=== PATIENT | male | born 1935 | race Caucasian/White ===

== ENCOUNTER 2019-11-21 06:19 | Inpatient (IN) ==
[2019-11-21] MEDS ORDERED: *HR* Metoprolol 5 MG/5 ML VIAL IVP PRN (07:17)
[2019-11-21] MEDS ORDERED: *HR* FentaNYL (PF) 100 MCG/2 ML VIAL IVP PRN (07:17)
[2019-11-21] MEDS ORDERED: Acetaminophen IV 1,000 MG/100 ML INFUS..BTL IVPB ONE (07:17)
[2019-11-21] MEDS ORDERED: *HR* OxyCODONE Immed Rel 5 MG TABLET PO PRN (07:17)
[2019-11-21] MEDS ORDERED: Ondansetron 4 MG/2 ML VIAL IVP ONE ×2 (07:17→13:07)
[2019-11-21] MEDS ORDERED: *HR* Promethazine 25 MG/ML VIAL IVP PRN (07:17)
[2019-11-21] MEDS ORDERED: Albuterol 2.5 MG/3 ML NEBULIZER IH PRN (07:17)
[2019-11-21] MEDS: 0.9 % Sodium Chloride 1,000 ML IVC SCH ×2 (07:18→12:00)
[2019-11-21] MEDS ORDERED: 0.9 % Sodium Chloride 1,000 ML ONE ×2 (07:32→08:56)
[2019-11-21] MEDS ORDERED: ISOVUE-370 200 ML INFUS..BTL ONE (07:32)
[2019-11-21] MEDS ORDERED: Heparin 1,000 UNITS/500 mL 1,500 ML ONE (07:32)
[2019-11-21] MEDS ORDERED: *HR* Heparin 10,000 UNIT/10 ML VIAL ONE (07:32)
[2019-11-21] MEDS ORDERED: *HR* FentaNYL (PF) 100 MCG/2 ML VIAL ONE (07:33)
[2019-11-21] MEDS ORDERED: *HR* Succinylcholine 200 MG/10 ML VIAL IVP ONE (07:33)
[2019-11-21] MEDS ORDERED: *HR* Vasopressin 20 UNIT/ML VIAL ONE (07:33)
[2019-11-21] MEDS ORDERED: Heparin 1,000 UNITS/500 mL 500 ML ONE (07:41)
[2019-11-21] MEDS ORDERED: Protamine Sulfate 50 MG/5 ML VIAL IVP ONE (09:54)
[2019-11-21] MEDS ORDERED: Loratadine 10 MG TABLET PO PRN (09:56)
[2019-11-21] MEDS ORDERED: *HR* Phenylephrine 10 MG/ML VIAL IVC ONE (13:07)
[2019-11-21] MEDS ORDERED: *HR* Propofol 200 MG/20 ML VIAL IVP ONE (13:07)
[2019-11-21] MEDS ORDERED: Lidocaine -MPF 4% 5 ML AMPUL INFILT ONE (13:07)
[2019-11-21] MEDS: Gabapentin 300 MG CAPSULE PO SCH ×3 (14:29→21:19)
[2019-11-21] MEDS: Metoprolol XL (24 HR) Succ 25 MG TAB.ER.24H PO SCH (14:35)
[2019-11-21] MEDS: Furosemide 40 MG TABLET PO SCH (16:08)
[2019-11-21] MEDS ORDERED: Perflutren Lipid Microsphere 1.3 ML in 0.9 % Sodium Chloride 8.7 ML IVP ONE (17:00)
[2019-11-21] MEDS: Apixaban 5 MG TABLET PO SCH (21:19)
[2019-11-22] MEDS ORDERED: Ascorbic Acid 500 MG TABLET PO SCH (07:30)
[2019-11-22] MEDS: Furosemide 40 MG TABLET PO SCH (07:51)
[2019-11-22] MEDS: Apixaban 5 MG TABLET PO SCH (07:51)
[2019-11-22] MEDS: Gabapentin 300 MG CAPSULE PO SCH (07:52)
[2019-11-22] MEDS: Metoprolol XL (24 HR) Succ 25 MG TAB.ER.24H PO SCH (07:52)
[2019-11-22 08:31] LABS: INR 1.3; Prothrombin Time 14.2 Seconds (9.4-12.1)
[2019-11-22 08:33] LABS: Basophils % 0.1 %; Eosinophils % 0.1 %; Hematocrit 37.8 % (37.5-50.1); Hemoglobin 12.1 g/dL (12.9-16.9); Immature Granulocytes % 0.4 % (0-4); Lymphocytes # 1.2 K/mcL (0.6-4.6); Mean Corpuscular Volume 96.9 fL (83.0-100.0); Mean Platelet Volume 10.4 fL (9.4-12.4); Monocytes # 0.8 K/mcL (0.0-1.3); Monocytes % 6.8 %; Neutrophils # 9.1 K/mcL (1.6-8.9); Platelet Count 204 K/mcL (140-400); Red Cell Distribution Width 13.9 % (11.5-14.5); Segmented Neutrophils % 81.6 %
[2019-11-22 08:41] LABS: BUN/Creatinine Ratio 26 (6-26); Blood Urea Nitrogen 23 mg/dL (8-23); Calcium 9.5 mg/dL (8.6-10.3); Carbon Dioxide 28 mEq/L (23-29); Chloride 104 mEq/L (98-107); Glucose 118 mg/dL (70-105); Osmolality,Calculated 293 (280-300); Potassium 4.4 mEq/L (3.5-5.1); Sodium 139 mEq/L (136-145); eGFR For African Americans > 60 (> 60); eGFR For Non-African Americans > 60 (> 60)
[2019-11-22 08:42] LABS: White Blood Count 11.1 K/mcL (4.3-11.1)
[2019-11-22] MEDS ORDERED: Multivit/Ca/Min/Fe/FA 1 TAB TABLET PO SCH (09:00)
[2019-11-22] MEDS ORDERED: Magnesium Oxide 400 MG TABLET PO SCH (09:00)
[2019-11-22] MEDS ORDERED: Aspirin Enteric Coated 81 MG Tablet PO SCH (09:00)
[2019-11-22] MEDS ORDERED: Metoprolol XL (24 HR) Succ 50 MG TAB.ER.24H PO SCH (09:00)
[2019-11-22 11:39] VITALS: BP 139/90
== END 2019-11-22 13:08 | disposition home or self-care (01) | DRG 274 ==
LOC: 2NNU 06:19
PROVIDERS: ADMIT Internal Medicine Cardiovascular Disease; ATTEND Internal Medicine Cardiovascular Disease